=== PATIENT | male | born 1950 | race Caucasian/White ===

== ENCOUNTER 2022-03-30 21:28 | Inpatient (IN) | payer MEDICARE, BC ==
[~2022-03-30] VITALS: Ht 198.1 cm; Wt 68.0 kg
--- NOTE | 2022-03-30 20:05 | NUR ---
Received admission report from [facility] nurse.
[2022-03-30 21:44] VITALS: BP 152/81
--- NOTE | 2022-03-30 21:44 | NUR ---
Patient arrived to the floor from [facility] via [facility], accompanied by 2 EMT's, awake, alert and no apparent distress noted. Transferred from [place] to bed with 2 people assist. Able to assist in transferring activity. Complaint of tolerable BLE peripheral neuropathy pain. Able to turn and repositioned self in bed. Routine admission care done. Oriented to floor, staff, TV remote control,bed control and call light. Plan of care initiated.
[2022-03-30] MEDS ORDERED: GABA600T12 PO (23:35)
[2022-03-30] MEDS ORDERED: PANT40TA49 PO (23:35)
[2022-03-30] MEDS ORDERED: AMIT25TA9 PO (23:35)
[2022-03-30] MEDS ORDERED: ACET-2154 PO (23:35)
[2022-03-30] MEDS ORDERED: HYDR-3980 PO (23:35)
[2022-03-30] MEDS ORDERED: TAMS-3 PO (23:35)
[2022-03-30] MEDS ORDERED: CEFT1PIG2 IV (23:35)
[2022-03-30] MEDS ORDERED: MAGN400O6 PO (23:35)
[2022-03-30] MEDS ORDERED: TEMA15CA PO (23:35)
[2022-03-30] MEDS ORDERED: METO-358 PO (23:35)
[2022-03-30] MEDS ORDERED: MAG30ORA2 PO (23:35)
[2022-03-30] MEDS ORDERED: HYDR-3974 PO (23:35)
[2022-03-30] MEDS ORDERED: TRAM50TA2 PO (23:35)
[2022-03-30] MEDS ORDERED: ATOR10TA PO (23:35)
[2022-03-31] MEDS ORDERED: DEXTROSE 50% 50 ML DISP.SYRIN IV PRN (00:15)
[2022-03-31] MEDS: TRAMADOL HCL 50 MG TABLET PO PRN ×2 (01:01→20:36)
[2022-03-31] MEDS: BLOOD SUGAR DIAGNOSTIC 1 EACH STRIP VI SCH ×5 (01:07→20:42)
[2022-03-31] MEDS: IV NS 1000 ML 1,000 ML IV PRN ×2 (01:10→08:51)
[2022-03-31 05:52] VITALS: BP 153/86
[2022-03-31] MEDS ORDERED: ROSU5TAB PO (06:35)
[2022-03-31 07:43] VITALS: BP 172/87
[2022-03-31] MEDS: REMEDY ESSENTIAL ZINC PASTE 113 GM TOP SCH ×2 (09:14→20:37)
[2022-03-31] MEDS ORDERED: HYDROCODONE/APAP 10-325 MG TABLET PO PRN (11:15)
[2022-03-31] MEDS ORDERED: ACETAMINOPHEN 325 MG TABLET-SA PATIENTS-PAIN ONLY PO PRN (11:15)
[2022-03-31] MEDS ORDERED: HYDROCODONE/APAP 5-325MG TABLET PO PRN (11:15)
[2022-03-31] MEDS ORDERED: MAGNESIUM HYDROXIDE 30 ML LIQUID UDC PO PRN (11:15)
[2022-03-31] MEDS ORDERED: ACETAMINOPHEN 325 MG TABLET PO PRN (11:45)
[2022-03-31] MEDS: GABAPENTIN 300 MG CAPSULE PO SCH ×3 (12:10→16:53)
[2022-03-31] MEDS: CEFTRIAXONE 1 G in IV DEXTROSE 5% 50 ML IV SCH (12:10)
[2022-03-31] MEDS: INSULIN REGULAR, HUMAN 300 UNIT/3 ML VIAL SQ PRN ×2 (12:14→20:44)
[2022-03-31] MEDS: METOPROLOL SUCCINATE XL 50 MG TAB.SR.24H PO SCH (12:34)
--- NOTE | 2022-03-31 14:18 | NUR ---
0730-REC'D PATIENT IN BED, AWAKE/A/OX4, VERBALLY COMMUNICATIVE, AWARE OF SURROUNDINGS/HEALTH CONDITION. PATIENT DENIES PAIN, NO S/S OF HYPO/HTN OR HYPO/HYPERGLYCEMIA NOTED. PATIENT INCONTINENT OF URINE, DIAPER CHANGED, GOOD PERINEAL CARE PROVIDED. CONTINUES ON IVF HYDRATION ORDERED BY . IV TO LEFT AC INFUSING WELL. PATIENT NEWLY ADM TO HOSPIRTAL, PENDING FURTHER ORDERS FROM PATRICIA Angel. ENCOURAGED PATIENT TO USE CALL LIGHT FOR HELP EVERY TIME NEEDED WITH GOOD UNDERSTANDING. 0900-PATIENT HAD A GOOD BREAKFAST, ORAL FLUIDS TAKEN WELL, NO C/O GI DISCOMFORT. HAD ANOTHER WET DIAPER AND CHANGED., PATIENT THEN WAS EVAL BY [facility] FOR PT/OT SKILLED SERVICES AND DID WELL IN EVALUATION, ABLE TO ACTIVELY PARTICIPATE IN EVAL. AMBULATES WITH FWW AND SUPERVISION. 1130-PATIENT WAS SEEN BY JOCE GOMEZ WITH ORDERS FOR IVATB THERAPY AND CONTINUE IVF HYDRATION.
[2022-03-31 15:49] VITALS: BP 156/77
[2022-03-31] MEDS ORDERED: CLONIDINE HCL 0.1 MG TABLET PO PRN (17:00)
--- NOTE | 2022-03-31 17:38 | NUR ---
ASSIST PATIENT TO THE RESTROOM NEEDED/PATIENT WITH EPISODES OF BOTH (INCONTINENT/INCONTINENCE)URINE. ENCOURAGED AND ASSIST TO USE THE URINAL, PATIENT STATED IT IS HARD TO USE THE SMALL DEVICE-REFERRING TO THE URINAL. CARE PROVIDED AT ROUTINE INTERVALS AND NEEDED. PATIENT WITH GOOD APPETITE, ATE MEALS WELL W/O C/O GI DISCOMFORT., PATIENT ALSO REFUSED TO TAKE NEURONTIN DOSE 600MG SCHEDULED AT 1700, PER PATIENT HE WOULD LIKE TO STOP THIS MEDICATION DUE TO IT GIVES HIM "ELECTRIC SHOCKS ALL OVER THE BODY, AND I KNOW IT IS ONE OF THE SIDE EFFECTS OF IT." PATIENT TAKES NEURONTIN FOR PERIPHERAL RESTLESSNESS LEG SYNDROME. RISKS VS BENEFITS EXPLAINED TO THE PATIENT, PATIENT STILL REFUSED AND STATED, "I'VE THOUGHT ABOUT STOPPING THIS MEDICATION FOR SOME TIME ALREADY". WISHES AND CHOICES RESPECTED. NEURONTIN DC PER PATIENT'S REQUEST AND PER MD'S ORDER.
--- NOTE | 2022-03-31 19:16 | NUR ---
1800-Patient was noted with PIV to LT AC malfunctioning/leaking. Attempted insert, patient with poor venous access & unsuccessful. Notified Dr. Parmjit Pemberton and obtained an order for ML, HS (Nedra Lomabrdo) was notified. Pending for ML insertion. Patient is aware of ML order and agrees. Endorsed appropriately for proper follow up to relieving RN.
[2022-03-31 20:01] VITALS: BP 146/72
[2022-03-31] MEDS: TAMSULOSIN HCL 0.4 MG CAP.SR.24H PO SCH (20:36)
[2022-03-31] MEDS: ATORVASTATIN 10 MG TABLET PO SCH (20:36)
[2022-03-31] MEDS: AMITRIPTYLINE HCL 25 MG TABLET PO SCH (20:37)
[2022-03-31] MEDS: TEMAZEPAM 15 MG CAPSULE PO PRN (20:39)
--- NOTE | 2022-04-01 04:43 | NUR ---
Admitted for generalized weakness, deconditioning and UTI. AAOx4 Ambulatory with supervision. No acute distress noted. Patient on IVF's and IV ABT but no IV access. Tried x2 unable to insert heplock. Requested for midline. Will have it done this am. Medicated with tramadol earlier this shift with relief noted. No acute distress noted. Voiding well.
[2022-04-01 05:57] VITALS: BP 133/61
[2022-04-01] MEDS: PANTOPRAZOLE SODIUM 40 MG TABLET.DR PO SCH (06:05)
[2022-04-01] MEDS: BLOOD SUGAR DIAGNOSTIC 1 EACH STRIP VI SCH ×4 (06:31→21:00)
[2022-04-01 07:21] LABS: HEMATOCRIT 33.5 % (36.7-47.1); MEAN CORPUSCULAR HEMOGLOBIN 29.5 uug (23.8-33.4); MEAN CORPUSCULAR VOLUME 86.3 fL (73.0-96.2); PLATELET COUNT (AUTO) 175 K/uL (152-348)
[2022-04-01 07:34] LABS: BILIRUBIN,TOTAL 0.3 mg/dL (0.2-1.0); CREATININE 2.1 mg/dL (0.6-1.3); MAGNESIUM 1.8 mg/dL (1.8-2.4); PHOSPHOROUS 3.7 mg/dL (2.5-4.9); POTASSIUM 3.9 mmol/L (3.5-5.1); TOTAL PROTEIN, SERUM 7.8 g/dL (6.4-8.2)
[2022-04-01 07:50] VITALS: BP 141/67
[2022-04-01] MEDS: METOPROLOL SUCCINATE XL 50 MG TAB.SR.24H PO SCH (09:41)
[2022-04-01] MEDS: REMEDY ESSENTIAL ZINC PASTE 113 GM TOP SCH ×2 (09:41→20:58)
[2022-04-01] MEDS: CEFTRIAXONE 1 G in IV DEXTROSE 5% 50 ML IV SCH ×2 (12:00→14:20)
--- NOTE | 2022-04-01 12:05 | NUR ---
DECLINED SLIDING SCALE COVERAGE FOR LUNCH ACCUCHECK
[2022-04-01] MEDS: GLUCERNA SHAKE 237 ML CAN PO SCH (14:20)
[2022-04-01 16:34] VITALS: BP 156/82
--- NOTE | 2022-04-01 16:52 | NUR ---
STILL WAITING FOR MIDLINE NURSE.
--- NOTE | 2022-04-01 16:54 | NUR ---
AFTERNOON ROCEPHIN NOT GIVEN . WAS TOLD IN SHIFT REPORT THAT AFTER MULTIPLE ATTEMPTS TO STAR AN IV LINE. AN ORDERED WAS ENTERED FOR MID LINE. WAITING FOR MIDLINE NURSE. SPOKE WITH NSG SUP
--- NOTE | 2022-04-01 16:57 | NUR ---
REFUSED DINNER ACCU CHECK STATES HE IS NOT GOING TO TAKE THE SLIDING SCALE COVERAGE ANYWAY BECAUSE HE DOES NOT TAKE INSULIN
[2022-04-01] MEDS: HYDROCODONE/APAP 10-325 MG TABLET PO PRN (19:02)
[2022-04-01 20:00] VITALS: BP 146/73
[2022-04-01] MEDS: TAMSULOSIN HCL 0.4 MG CAP.SR.24H PO SCH (20:56)
[2022-04-01] MEDS: AMITRIPTYLINE HCL 25 MG TABLET PO SCH (20:57)
[2022-04-01] MEDS: ATORVASTATIN 10 MG TABLET PO SCH (20:57)
[2022-04-01] MEDS: TEMAZEPAM 15 MG CAPSULE PO PRN (21:04)
[2022-04-02] MEDS: HYDROCODONE/APAP 10-325 MG TABLET PO PRN ×3 (02:24→21:00)
[2022-04-02] MEDS: BLOOD SUGAR DIAGNOSTIC 1 EACH STRIP VI SCH ×4 (05:53→21:00)
[2022-04-02] MEDS: PANTOPRAZOLE SODIUM 40 MG TABLET.DR PO SCH (05:55)
[2022-04-02 06:00] LABS: MEAN CORPUSCULAR HEMOGLOBIN 29.2 uug (23.8-33.4); MEAN CORPUSCULAR VOLUME 86.2 fL (73.0-96.2); PLATELET COUNT (AUTO) 172 K/uL (152-348)
[2022-04-02 06:09] LABS: BILIRUBIN,TOTAL 0.3 mg/dL (0.2-1.0); CREATININE 2.2 mg/dL (0.6-1.3); MAGNESIUM 1.9 mg/dL (1.8-2.4); PHOSPHOROUS 4.6 mg/dL (2.5-4.9); POTASSIUM 3.7 mmol/L (3.5-5.1); TOTAL PROTEIN, SERUM 7.5 g/dL (6.4-8.2)
[2022-04-02 06:50] VITALS: BP 148/72
[2022-04-02 07:38] VITALS: BP 156/80
[2022-04-02] MEDS: GLUCERNA SHAKE 237 ML CAN PO SCH (10:00)
[2022-04-02] MEDS: REMEDY ESSENTIAL ZINC PASTE 113 GM TOP SCH ×2 (10:00→21:02)
[2022-04-02] MEDS: METOPROLOL SUCCINATE XL 50 MG TAB.SR.24H PO SCH (10:00)
[2022-04-02] MEDS: CEphaleXIN 500 MG CAPSULE PO SCH ×2 (14:32→21:01)
[2022-04-02] MEDS: FLUCONAZOLE 100 MG TABLET PO SCH (14:32)
[2022-04-02 15:00] VITALS: BP 155/84
--- NOTE | 2022-04-02 15:29 | NUR ---
NO MIDLINE NURSE AVAILABLE. IVATB CONVERTED TO PO
[2022-04-02 20:23] VITALS: BP 159/78
[2022-04-02] MEDS: TEMAZEPAM 15 MG CAPSULE PO PRN (21:00)
--- NOTE | 2022-04-02 21:00 | NUR ---
Patient awake,alert ,and oriented x4. Room air, Respirations even and nonlabored. Abdomen soft. No IV access noted. complaint of bilateral foot pain. Medicated prn. Will continue to monitor.
[2022-04-02] MEDS: TAMSULOSIN HCL 0.4 MG CAP.SR.24H PO SCH (21:01)
[2022-04-02] MEDS: ATORVASTATIN 10 MG TABLET PO SCH (21:01)
[2022-04-02] MEDS: AMITRIPTYLINE HCL 25 MG TABLET PO SCH (21:02)
[2022-04-03 04:09] VITALS: BP 114/61
[2022-04-03] MEDS: CEphaleXIN 500 MG CAPSULE PO SCH ×3 (05:35→22:23)
[2022-04-03] MEDS: PANTOPRAZOLE SODIUM 40 MG TABLET.DR PO SCH (05:43)
[2022-04-03] MEDS: HYDROCODONE/APAP 10-325 MG TABLET PO PRN ×2 (05:47→17:27)
[2022-04-03] MEDS: BLOOD SUGAR DIAGNOSTIC 1 EACH STRIP VI SCH ×4 (06:10→20:57)
--- NOTE | 2022-04-03 06:22 | NUR ---
Patient refused fingerstick blood sugar checks this shift.
[2022-04-03 07:23] LABS: POTASSIUM 3.8 mmol/L (3.5-5.1)
[2022-04-03 07:29] VITALS: BP 143/77
[2022-04-03] MEDS: REMEDY ESSENTIAL ZINC PASTE 113 GM TOP SCH ×2 (10:06→20:52)
[2022-04-03] MEDS: METOPROLOL SUCCINATE XL 50 MG TAB.SR.24H PO SCH (10:06)
[2022-04-03] MEDS: GLUCERNA SHAKE 237 ML CAN PO SCH (10:07)
[2022-04-03] MEDS: FLUCONAZOLE 100 MG TABLET PO SCH (13:59)
[2022-04-03 15:22] VITALS: BP 131/79
[2022-04-03 20:00] VITALS: BP 125/69
[2022-04-03] MEDS: AMITRIPTYLINE HCL 25 MG TABLET PO SCH (20:50)
[2022-04-03] MEDS: TEMAZEPAM 15 MG CAPSULE PO PRN (20:51)
[2022-04-03] MEDS: TAMSULOSIN HCL 0.4 MG CAP.SR.24H PO SCH (20:51)
[2022-04-03] MEDS: ATORVASTATIN 10 MG TABLET PO SCH (20:51)
[2022-04-03] MEDS: INSULIN REGULAR, HUMAN 300 UNIT/3 ML VIAL SQ PRN (20:57)
[2022-04-04] MEDS: HYDROCODONE/APAP 10-325 MG TABLET PO PRN ×3 (01:03→18:04)
[2022-04-04] MEDS: PANTOPRAZOLE SODIUM 40 MG TABLET.DR PO SCH (06:02)
[2022-04-04] MEDS: CEphaleXIN 500 MG CAPSULE PO SCH ×3 (06:02→22:49)
[2022-04-04] MEDS: BLOOD SUGAR DIAGNOSTIC 1 EACH STRIP VI SCH ×4 (06:23→20:35)
[2022-04-04 07:04] VITALS: BP 129/75
[2022-04-04] MEDS: METOPROLOL SUCCINATE XL 50 MG TAB.SR.24H PO SCH (08:20)
[2022-04-04] MEDS: GLUCERNA SHAKE 237 ML CAN PO SCH (08:25)
[2022-04-04] MEDS: REMEDY ESSENTIAL ZINC PASTE 113 GM TOP SCH ×2 (08:26→20:30)
[2022-04-04 08:48] VITALS: BP 152/83
[2022-04-04] MEDS: FLUCONAZOLE 100 MG TABLET PO SCH (13:45)
[2022-04-04 15:06] LABS: A/G RATIO 0.8 (0.7-1.7); ALBUMIN 3.2 g/dL (2.9-4.4); ALPHA-1-GLOBULIN 0.3 g/dL (0.0-0.4); BETA GLOBULIN 0.9 g/dL (0.7-1.3); GAMMA GLOBULIN 1.5 g/dL (0.4-1.8); GLOBULIN, TOTAL 3.8 g/dL (2.2-3.9); M-SPIKE Not Observed g/dL (Not Observed)
[2022-04-04 15:59] VITALS: BP 158/92
[2022-04-04] MEDS: PREGABALIN 100 MG CAPSULE PO SCH (19:16)
--- NOTE | 2022-04-04 19:32 | NUR ---
RECEIVED REPORT FROM CORY OLIVEIRA RN. PATIENT IS ALERT & ORIENTED X4, AND SPEAKS [place]. VITAL SIGNS STABLE. PATIENT TOLERATES PO MEDICATIONS AND DIET WELL. PARTICIPATES WITH PHYSICAL AND OCCUPATIONAL THERAPY SCHEDULED. PATIENT HAD COMPLAINT OF PAIN OF THE FOOT. RN MANAGED PAIN WITH MEDICATIONS ORDERED. NO ACUTE DISTRESS NOTED. FALL PRECAUTIONS IN PLACE. ALL NEEDS MET AT THIS TIME. ENDORSED CARE TO CORY OLIVEIRA RN, FOR CONTINUATION OF CARE.
[2022-04-04 20:00] VITALS: BP 140/72
[2022-04-04] MEDS: ATORVASTATIN 10 MG TABLET PO SCH (20:29)
[2022-04-04] MEDS: TAMSULOSIN HCL 0.4 MG CAP.SR.24H PO SCH (20:29)
[2022-04-04] MEDS: AMITRIPTYLINE HCL 25 MG TABLET PO SCH (20:30)
[2022-04-04] MEDS: TEMAZEPAM 15 MG CAPSULE PO PRN (20:31)
--- NOTE | 2022-04-05 00:01 | NUR ---
Patient BS was 144mg/dl but refused sliding scale coverage. Charge nurse made aware.
[2022-04-05 04:00] VITALS: BP 130/67
[2022-04-05] MEDS: CEphaleXIN 500 MG CAPSULE PO SCH ×3 (06:10→23:31)
[2022-04-05] MEDS: PANTOPRAZOLE SODIUM 40 MG TABLET.DR PO SCH (06:11)
[2022-04-05] MEDS: BLOOD SUGAR DIAGNOSTIC 1 EACH STRIP VI SCH ×4 (06:36→20:49)
[2022-04-05 07:30] LABS: CREATININE 2.2 mg/dL (0.6-1.3); POTASSIUM 3.8 mmol/L (3.5-5.1)
[2022-04-05 08:43] VITALS: BP 151/91
[2022-04-05] MEDS: GLUCERNA SHAKE 237 ML CAN PO SCH (08:47)
[2022-04-05] MEDS: REMEDY ESSENTIAL ZINC PASTE 113 GM TOP SCH ×2 (08:48→20:44)
[2022-04-05] MEDS: PREGABALIN 100 MG CAPSULE PO SCH ×2 (08:52→16:58)
[2022-04-05] MEDS: METOPROLOL SUCCINATE XL 50 MG TAB.SR.24H PO SCH (08:54)
--- NOTE | 2022-04-05 13:34 | NUR ---
TEXT DR Jn MAYER FOR MRI APPROVAL.
[2022-04-05] MEDS: FLUCONAZOLE 100 MG TABLET PO SCH (14:53)
[2022-04-05 16:07] VITALS: BP 133/82
[2022-04-05] MEDS: INSULIN REGULAR, HUMAN 300 UNIT/3 ML VIAL SQ PRN (16:59)
[2022-04-05] MEDS: HYDROCODONE/APAP 10-325 MG TABLET PO PRN (17:12)
[2022-04-05 20:00] VITALS: BP 146/74
[2022-04-05] MEDS: ATORVASTATIN 10 MG TABLET PO SCH (20:44)
[2022-04-05] MEDS: AMITRIPTYLINE HCL 25 MG TABLET PO SCH (20:44)
[2022-04-05] MEDS: TAMSULOSIN HCL 0.4 MG CAP.SR.24H PO SCH (20:44)
--- NOTE | 2022-04-05 21:27 | NUR ---
Patient continue to receive sliding scale coverage of BS 166mg/dl. Charge nurse aware.
[2022-04-06] MEDS: HYDROCODONE/APAP 10-325 MG TABLET PO PRN ×2 (00:03→10:58)
[2022-04-06] MEDS: CEphaleXIN 500 MG CAPSULE PO SCH ×3 (05:38→21:07)
[2022-04-06 05:48] VITALS: BP 142/81
[2022-04-06] MEDS: PANTOPRAZOLE SODIUM 40 MG TABLET.DR PO SCH (06:06)
[2022-04-06] MEDS: BLOOD SUGAR DIAGNOSTIC 1 EACH STRIP VI SCH ×4 (06:26→20:28)
[2022-04-06 07:56] VITALS: BP 138/75
[2022-04-06] MEDS: METOPROLOL SUCCINATE XL 50 MG TAB.SR.24H PO SCH (08:25)
[2022-04-06] MEDS: REMEDY ESSENTIAL ZINC PASTE 113 GM TOP SCH ×2 (08:26→20:23)
[2022-04-06] MEDS: GLUCERNA SHAKE 237 ML CAN PO SCH (08:26)
[2022-04-06] MEDS: PREGABALIN 100 MG CAPSULE PO SCH ×2 (08:26→16:24)
[2022-04-06] MEDS: FLUCONAZOLE 100 MG TABLET PO SCH (14:04)
[2022-04-06 20:00] VITALS: BP 126/71
--- NOTE | 2022-04-06 20:04 | NUR ---
RECEIVED REPORT FROM CORY OLIVEIRA RN. PATIENT IS ALERT & ORIENTED X4 AND SPEAKS ARM[place]. VITAL SIGNS STABLE. PATIENT TOLERATES PO MEDICATIONS AND DIET WELL. PATIENT PARTICIPATES WITH PHYSICAL AND OCCUPATIONAL THERAPY SCHEDULE. PATIENT VOIDS ADEQUATELY. PATIENT HAD COMPLAINT OF PAIN. RN GAVE PAIN MEDICATIONS ORDERED. PATIENT LEFT FOR MRI & CAME BACK. NO ACUTE DISTRESS NOTED. FALL PRECAUTIONS OBSERVED; INCLUDING BUT NOT LIMITED TO BED IN LOWEST POSITION AND BED ALARM ON. ALL NEEDS MET AT THIS TIME. ENDORSED CARE TO NIKOLAS OLIVEIRA, FOR CONTINUATION OF CARE. Addendum: 04/06/22 at 2006 by SUMMER SINGLETON RN PATIENT CONTINUES TO REFUSE INSULIN COVERAGE. PATIENT REFUSED 1130 BLOOD SUGAR CHECK.
[2022-04-06] MEDS: TAMSULOSIN HCL 0.4 MG CAP.SR.24H PO SCH (20:22)
[2022-04-06] MEDS: ATORVASTATIN 10 MG TABLET PO SCH (20:22)
[2022-04-06] MEDS: AMITRIPTYLINE HCL 25 MG TABLET PO SCH (20:23)
[2022-04-06] MEDS: TEMAZEPAM 15 MG CAPSULE PO PRN (20:31)
--- NOTE | 2022-04-06 20:52 | NUR ---
BS 160 mg/dl. Denies s/s of hyperglycemia. Refused sliding scale coverage again this time.Will endorse.
[2022-04-07 04:00] VITALS: BP 122/75
[2022-04-07] MEDS: PANTOPRAZOLE SODIUM 40 MG TABLET.DR PO SCH (06:10)
[2022-04-07] MEDS: BLOOD SUGAR DIAGNOSTIC 1 EACH STRIP VI SCH ×4 (06:14→20:32)
[2022-04-07 07:57] VITALS: BP 134/58
[2022-04-07] MEDS: PREGABALIN 100 MG CAPSULE PO SCH ×2 (08:19→16:40)
[2022-04-07] MEDS: METOPROLOL SUCCINATE XL 50 MG TAB.SR.24H PO SCH (08:21)
[2022-04-07] MEDS: REMEDY ESSENTIAL ZINC PASTE 113 GM TOP SCH ×2 (08:22→20:29)
[2022-04-07] MEDS: GLUCERNA SHAKE 237 ML CAN PO SCH (08:22)
[2022-04-07] MEDS: HYDROCODONE/APAP 10-325 MG TABLET PO PRN (14:11)
[2022-04-07] MEDS: FLUCONAZOLE 100 MG TABLET PO SCH (14:11)
[2022-04-07 15:46] VITALS: BP 136/60
--- NOTE | 2022-04-07 19:52 | NUR ---
RECEIVED REPORT FROM CORY OLIVEIRA RN. PATIENT IS ALERT & ORIENTED X4 AND SPEAKS [place]. VITAL SIGNS STABLE. PATIENT TOLERATES PO MEDICATIONS AND DIET WELL. PATIENT PARTICIPATES WITH PHYSICAL AND OCCUPATIONAL THERAPY SCHEDULE. PATIENT VOIDS ADEQUATELY. PATIENT HAD COMPLAINT OF PAIN. RN GAVE PAIN MEDICATIONS ORDERED. PATIENT HAD QUESTIONS FOR CASE MANAGEMENT. RN REACHED OUT TO CASE MANAGEMENT. PATIENT REFUSED BLOOD SUGAR CHECKS FOR 1130 & 1630. PATIENT REFUSES INSULIN COVERAGE. RN EDUCATES REGARDING ON BOTH REFUSALS. PATIENT VERBALIZES UNDERSTANDING. NO ACUTE DISTRESS NOTED. FALL PRECAUTIONS OBSERVED; INCLUDING BUT NOT LIMITED TO BED IN LOWEST POSITION AND BED ALARM ON. ALL NEEDS MET AT THIS TIME. ENDORSED CARE TO NIKOLAS OLIVEIRA, FOR CONTINUATION OF CARE.
[2022-04-07 20:00] VITALS: BP 140/78
[2022-04-07] MEDS: TAMSULOSIN HCL 0.4 MG CAP.SR.24H PO SCH (20:28)
[2022-04-07] MEDS: TEMAZEPAM 15 MG CAPSULE PO PRN (20:28)
[2022-04-07] MEDS: ATORVASTATIN 10 MG TABLET PO SCH (20:28)
[2022-04-07] MEDS: AMITRIPTYLINE HCL 25 MG TABLET PO SCH (20:34)
--- NOTE | 2022-04-07 20:50 | NUR ---
Patient refused blood sugar monitoring this time stating he took a lot of sugar today and don't want to see the result despite explaining the risk and benefits.
[2022-04-08 04:53] VITALS: BP 128/60
[2022-04-08] MEDS: BLOOD SUGAR DIAGNOSTIC 1 EACH STRIP VI SCH ×4 (06:07→21:17)
[2022-04-08] MEDS: PANTOPRAZOLE SODIUM 40 MG TABLET.DR PO SCH (06:07)
[2022-04-08 08:00] VITALS: BP 144/69
[2022-04-08] MEDS: PREGABALIN 100 MG CAPSULE PO SCH ×2 (08:49→16:39)
[2022-04-08] MEDS: METOPROLOL SUCCINATE XL 50 MG TAB.SR.24H PO SCH (08:51)
[2022-04-08] MEDS: GLUCERNA SHAKE 237 ML CAN PO SCH (08:52)
[2022-04-08] MEDS: REMEDY ESSENTIAL ZINC PASTE 113 GM TOP SCH ×2 (08:52→21:03)
--- NOTE | 2022-04-08 10:03 | NUR ---
picked up by his brother . out on pass to visit [facility] for possible d/c there on Monday
[2022-04-08] MEDS: FLUCONAZOLE 100 MG TABLET PO SCH (15:19)
[2022-04-08 15:53] VITALS: BP 117/76
[2022-04-08] MEDS: HYDROCODONE/APAP 10-325 MG TABLET PO PRN (19:42)
[2022-04-08 20:00] VITALS: BP 147/68
[2022-04-08] MEDS: TAMSULOSIN HCL 0.4 MG CAP.SR.24H PO SCH (21:02)
[2022-04-08] MEDS: ATORVASTATIN 10 MG TABLET PO SCH (21:02)
[2022-04-08] MEDS: AMITRIPTYLINE HCL 25 MG TABLET PO SCH (21:03)
[2022-04-08] MEDS: INSULIN REGULAR, HUMAN 300 UNIT/3 ML VIAL SQ PRN (21:16)
[2022-04-08] MEDS: TEMAZEPAM 15 MG CAPSULE PO PRN (21:23)
--- NOTE | 2022-04-08 23:00 | NUR ---
1910-PATIENT IN BED, AWAKE, A/Ox4, VERBALIZES NEEDS AND FOLLOWS DIRECTIONS. NO RESPIRATORY DISTRESS NOTED. SAFETY MEASURES AND CALL LIGHT AT REACH, bed at lowest position, wheels lock, and two side rails up, bed alarm on. ORAL FLUIDS OFFERED BRAD. AND TAKEN WELL. Will continue to monitor throughout the shift. 2200- The patient is awake and watching television. The patient has no signs of distress, or sob. Will continue to monitor throughout the shift. 0100- The patient request for extra water. Item is given to the patient. The patient has no sob. Will continue to monitor throughout the shift.
[2022-04-09 04:00] VITALS: BP 114/63
[2022-04-09] MEDS: PANTOPRAZOLE SODIUM 40 MG TABLET.DR PO SCH (06:54)
[2022-04-09] MEDS: BLOOD SUGAR DIAGNOSTIC 1 EACH STRIP VI SCH ×4 (07:30→21:00)
[2022-04-09] MEDS: PREGABALIN 100 MG CAPSULE PO SCH ×2 (08:49→16:16)
[2022-04-09 08:54] VITALS: BP 139/82
[2022-04-09] MEDS: GLUCERNA SHAKE 237 ML CAN PO SCH (08:56)
[2022-04-09] MEDS: METOPROLOL SUCCINATE XL 50 MG TAB.SR.24H PO SCH (08:58)
[2022-04-09] MEDS: REMEDY ESSENTIAL ZINC PASTE 113 GM TOP SCH ×2 (08:58→21:04)
[2022-04-09] MEDS: HYDROCODONE/APAP 10-325 MG TABLET PO PRN ×2 (09:37→21:04)
[2022-04-09 16:24] VITALS: BP 122/83
--- NOTE | 2022-04-09 16:38 | NUR ---
no events noted
[2022-04-09] MEDS: AMITRIPTYLINE HCL 25 MG TABLET PO SCH (21:03)
[2022-04-09] MEDS: ATORVASTATIN 10 MG TABLET PO SCH (21:03)
[2022-04-09] MEDS: TAMSULOSIN HCL 0.4 MG CAP.SR.24H PO SCH (21:03)
--- NOTE | 2022-04-09 23:00 | NUR ---
1915-PATIENT IN BED, AWAKE, A/Ox4, VERBALIZES NEEDS AND FOLLOWS DIRECTIONS. NO RESPIRATORY DISTRESS NOTED. SAFETY MEASURES AND CALL LIGHT AT REACH, bed at lowest position, wheels lock, and two side rails up, bed alarm on. ORAL FLUIDS OFFERED BRAD. AND TAKEN WELL. Will continue to monitor throughout the shift. 2300- The patient is awake and watching television. The patient request for a warm blanket. Item is given to the patient. The patient has no signs of distress, or sob. Will continue to monitor throughout the shift. 0300- The patient request for extra water. Item is given to the patient. The patient has no sob. Will continue to monitor throughout the shift.
[2022-04-10] MEDS: TEMAZEPAM 15 MG CAPSULE PO PRN (01:20)
[2022-04-10] MEDS: PANTOPRAZOLE SODIUM 40 MG TABLET.DR PO SCH (06:40)
[2022-04-10] MEDS: BLOOD SUGAR DIAGNOSTIC 1 EACH STRIP VI SCH ×2 (07:30→11:30)
[2022-04-10 07:31] VITALS: BP 144/92
[2022-04-10] MEDS: GLUCERNA SHAKE 237 ML CAN PO SCH (08:14)
[2022-04-10] MEDS: PREGABALIN 100 MG CAPSULE PO SCH (08:14)
[2022-04-10] MEDS: METOPROLOL SUCCINATE XL 50 MG TAB.SR.24H PO SCH (08:15)
[2022-04-10] MEDS: REMEDY ESSENTIAL ZINC PASTE 113 GM TOP SCH (08:16)
[2022-04-10 15:42] VITALS: BP 135/79
--- NOTE | 2022-04-10 16:03 | NUR ---
[facility] patient is alert, oriented x4, no sob, respirations are even nonlabored, skin warm and dry to touch, no distress noted, belongings are accounted and signed, patient had his own medication in the pharmacy, given to patient as well. no skin issues noted. discharge instructions given to patient, patient verbalized understanding of it. Addendum: 04/10/22 at 1855 by REINA STANTON RN, RN no IV line on patient, ID removed
--- NOTE | 2022-04-10 18:55 | NUR ---
patient forgot his sleepers in the room, called patient and patient said he will send someone to pick it up. placed in contraband with patient label on it
== END 2022-04-10 16:00 | disposition home health service (06) | DRG 73 ==
PROVIDERS: ADMIT Physical Medicine & Rehabilitation Pain Medicine; ATTEND Physical Medicine & Rehabilitation Pain Medicine
DX: E11.42 Type 2 diabetes mellitus with diabetic polyneuropathy (principal); N17.0 Acute kidney failure with tubular necrosis; N39.0 Urinary tract infection, site not specified; N18.4 Chronic kidney disease, stage 4 (severe); G93.40 Encephalopathy, unspecified; R53.1 Weakness; M54.16 Radiculopathy, lumbar region; R29.6 Repeated falls; D64.9 Anemia, unspecified; E11.22 Type 2 diabetes mellitus with diabetic chronic kidney disease; E11.65 Type 2 diabetes mellitus with hyperglycemia; E78.5 Hyperlipidemia, unspecified; F32.A Depression, unspecified; I12.9 Hypertensive chronic kidney disease with stage 1 through stage 4 chronic kidney disease, or unspecified chronic kidney disease; K21.9 Gastro-esophageal reflux disease without esophagitis; N40.0 Benign prostatic hyperplasia without lower urinary tract symptoms; Z91.81 History of falling; M21.372 Foot drop, left foot
CPT/HCPCS: 36415; 71045; 72148; 83735; 83970; 84100; 84155; 84165; 85025; 97535-GO-CO; A4663; J0696; J1815; J7040; U0003